=== PATIENT | female | born 1990 | race Caucasian/White ===

== ENCOUNTER → 2023-06-20 07:07 | Outpatient (REF) | payer OTHER, SELFPAY | LOC: PNTC 07:07 | PROVIDERS: ATTENDING PHYSICIAN Obstetrics & Gynecology | DX: Z36.0 Encounter for antenatal screening for chromosomal anomalies (principal); Z36.82 Encounter for antenatal screening for nuchal translucency | CPT/HCPCS: 36415; 76801; 76813 ==

== ENCOUNTER 2023-06-25 09:05 | Emergency (ER) | payer OTHER, SELFPAY ==
[2023-06-25 09:11] VITALS: BP 158/102
--- NOTE | 2023-06-25 09:33 | ED.GENMED ---
History of Present Illness
General
Chief Complaint: Problems
Time Seen by Provider: 06/25/23 09:33
Travel History
Have you had any contact with someone who has COVID-19?: No
Do you have any symptoms of coronavirus? Fever > 100 degrees, chills, cough, shortness of breath, sore throat, loss of taste or smell, muscle aches, or headache?: No
History of Present Illness
History of Present Illness:
HPI: Patient is 13 weeks . She comes in due to concerns of hyperemesis gravidarum. The call in note from Dr. Barry was reviewed which recommended IV fluids and antiemetics. She has no abdominal pain. She has had episodes like this with
her other 2 pregnancies as well.
EXAM:
GENERAL: Well appearing in no distress
HEENT: Moist oral mucosa, small abrasion noted to the lower lip
CARDIOVASCULAR: No murmurs, normal heart rate and rhythm, No chest wall tenderness
PULMONARY: No respiratory distress, breath sounds are clear and equal
ABDOMEN: Soft with no peritoneal signs, no tenderness, elevated BMI
NEUROLOGIC: Excellent strength all extremities, no coordination deficits
PSYCHIATRIC: Appropriate mental status, normal insight and judgement
EXTREMITIES: Nontender, no edema, moves all extremities equally
SKIN: No rash, no lesions
ED COURSE:
9:35 AM: I initially evaluated patient
NUMBER AND COMPLEXITY OF PROBLEMS ADDRESSED AT THE ENCOUNTER
� Chronic conditions affecting care: Migraine headaches, has had related nausea and vomiting in the past, anxiety/depression
� Acute Exacerbation and/or Progression of Chronic Illness: This is a subacute problem
� Differential Diagnosis includes: Nausea and vomiting of , hyperemesis gravidarum, dehydration, RHONDA
AMOUNT AND/OR COMPLEXITY OF DATA TO BE REVIEWED AND ANALYZED
� I performed an independent evaluation of and my interpretation is:
EKG:
CT:
X-rays:
Laboratory Studies: CBC unremarkable, normal renal function, only 1+ ketones in urine.
Other:
� Review of other/old records:
� Clinical information was obtained by an independent historian: I spoke to the at bedside
� Prescriptions/Medications Considered but not given:
� Further testing considered but not performed:
RISK OF COMPLICATIONS AND/OR MORBIDITY OR MORTALITY OF PATIENT MANAGEMENT
� Social determinants of health affecting care: Lives at home, this is her third
� Discussion with other providers: Discussed with Dr. Barry
� Escalation of care including admission/observation vs risk of discharge considered: The patient will be given IV fluids and antiemetic. She already has Zofran at home but does not think that she is tolerating it orally. On
reassessment at 12:15 PM, the patient is improved after receiving 2 L of fluid, Zofran then Reglan with Benadryl. Dr. Barry had called and rectal Phenergan.
Past History
Past History
ED Past Medical History: Asthma, Psychiatric (Anxiety, Depression) and Other (Migraines, Ovarian cyst, Kidney stones)
ED Past Surgical History: Appendectomy and
Social History
Tobacco: Non-smoker
Alcohol: Occasional
Drug: None
Personal:
Living: with family
Phy Exam
Physical Exam
Physical Exam:
See HPI
Course
Orders/Labs/Results
Orders:
Orders
06/25/23 09:35
0.9% Sodium Chloride 1000 ml [Nss] 1,000 ml IV BOLUS
0.9% Sodium Chloride 1000 ml [Nss] 1,000 ml IV BOLUS
06/25/23 09:39
Ondansetron Injectable [Zofran] 4 mg IV NOW STA
06/25/23 10:03
Complete Blood Count/With Diff Urgent
Comprehensive Metabolic Panel Urgent
Urinalysis Urgent
Date Specimen was Collected: 06/25/23
Time Specimen was Collected: 09:40
06/25/23 10:49
Diphenhydramine [Benadryl] 25 mg IV NOW STA
Metoclopramide [Reglan] 10 mg IV NOW STA
Abnormal Lab Results
06/25/23
10:03
MCH 31.1 H pg
(27.0-31.0)
MPV 10.8 H fL
(7.4-10.4)
Absolute Neuts (auto) 7.8 H 10^3/uL
(1.4-6.5)
Neutrophils % 78.2 H %
(42.2-75.2)
Lymphocytes % 16.0 L %
(20.5-51.1)
Sodium 134 L mmol/L
(135-145)
Creatinine 0.4 L mg/dL
(0.6-1.0)
Glucose 100 H mg/dl
(70-99)
Urine Ketones 1+ A
(Negative)
06/25/23 10:03
06/25/23 10:03
Vital Signs
Initial and Last Documented VS:
Initial Vital Signs
Temp Pulse Resp BP Pulse Ox
98.7 F 89 20 158/102 98
06/25/23 09:11 06/25/23 09:11 06/25/23 09:11 06/25/23 09:11 06/25/23 09:11
Last Documented Vital Signs
Temp Pulse Resp BP Pulse Ox
98.7 F 89 20 158/102 98
06/25/23 09:11 06/25/23 09:11 06/25/23 09:11 06/25/23 09:11 06/25/23 09:11
Information
Weeks gestation: Weeks:
Location: Location:
*Critical Care Note
Total Time (30-74mins, 75-104mins- exclusive of procedures): Not Applicable
ED Attending Note
-
Portions of this chart may have been created with voice recognition software.� Occasional wrong word or��sound alike� substitutions may have occurred due to the inherent limitations of voice recognition software.
Discharge Plan
Departure
Patient Disposition: Home (Routine Discharge)
Date of Disposition: 06/25/23
Time of Disposition: 12:12
Patient with high blood pressure during this ER visit?: Yes
Discharge Problem:
Hyperemesis gravidarum
Prescriptions:
No Action
PNV cmb#95-ferrous fumarate-FA [] 1 EACH tablet
1 ea PO DAILY
acetaminophen 325 mg Tablet
650 mg PO Q4HPRN PRN (Reason: mild pain) Qty: 0 0RF
sennosides-docusate sodium [Senna Plus] 8.6-50 mg Tablet
1 tab PO DAILYPRN PRN (Reason: constipation) Qty: 0 0RF
ferrous sulfate [FeroSul] 325 mg (65 mg iron) Tablet
325 mg PO BID Qty: 0 0RF
ibuprofen 600 mg Tablet
600 mg PO Q6HPRN PRN (Reason: cramps) Qty: 40 0RF
oxycodone-acetaminophen [Percocet] 5-325 mg tablet
1 tab PO Q4HPRN PRN (Reason: moderate pain)
simethicone [Gas Relief (simethicone)] 80 mg tablet,chewable
80 mg PO TIDPRN PRN (Reason: flatulence)
nifedipine 30 mg Tablet Extended Release
30 mg PO DAILY Qty: 60 0RF
Referrals:
Ciarra Gilliland MD [Family Provider] -
Marian Barry MD [Active] - Follow up in 2-3 days
Activity Restrictions/Additional Instructions:
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 We gave you 2 L of fluid, then Zofran and Reglan. She told me that she called in rectal Phenergan for you. Return here if worse.
Interventions
Interventions:
*Risk Screen - Suicide Last Done: 06/25/23 09:11
*General Assessment Last Done: 06/25/23 09:11
*Neglect/Abuse Screening Last Done: 06/25/23 09:11
ED-Female Genitourinary Assessment Last Done: 06/25/23 10:42
[2023-06-25] MEDS: NSS 1000 IV ×2 (10:03→10:05)
[2023-06-25] MEDS: ZOFRAN 4 MG IV (10:04)
[2023-06-25 10:22] LABS: Urine Albumin Negative (Neg - Trace); Urine Bilirubin Negative (Negative); Urine Character Clear (Clear); Urine Color Yellow; Urine Glucose Negative (Negative); Urine Ketone 1+ (Negative); Urine Leukocyte Negative (Negative); Urine Nitrite Negative (Negative); Urine Occult Blood Negative (Negative); Urine Urobilinogen Negative (Neg - 1+)
[2023-06-25 10:23] LABS: % Basophils 0.3 % (0-2); % Eosinophils 0.6 % (0-6); % Immature Granulocytes 0.4 % (0-0.5); % Monocytes 4.5 % (1.7-9.3); % Neutrophils 78.2 % (42.2-75.2); Absolute Eosinophils 0.1 10^3/uL (0-0.7); Absolute Lymphocytes 1.6 10^3/uL (1.2-3.4); Absolute Monocytes 0.5 10^3/uL (0.1-0.6); Absolute Neutrophils 7.8 10^3/uL (1.4-6.5); Hematocrit 39.3 % (37.0-47.0); Hemoglobin 13.6 g/dL (12.0-16.0); Mean Corp Hgb Conc. 34.6 g/dL (33.0-37.0); Mean Corpuscular Hgb 31.1 pg (27.0-31.0); Mean Corpuscular Volume 89.9 fL (81.0-99.0); Mean Platelet Volume 10.8 fL (7.4-10.4); Nucleated Red Blood Cells % 0 %; Platelet Count 220 10^3/uL (130-400); Red Blood Cell Count 4.37 10^6/uL (4.20-5.40); Red Cell Dist. Width 13.3 % (11.5-14.5); White Blood Cell Count 9.9 10^3/uL (4.8-10.8)
[2023-06-25 10:30] LABS: ALT (SGPT) 18 U/L (0-35); AST (SGOT) 21 U/L (14-36); Albumin 4.4 g/dl (3.5-5.0); Alkaline Phosphatase 80 U/L (38-126); Blood Urea Nitrogen 7 mg/dl (7-17); Calcium 9.4 mg/dl (8.4-10.2); Carbon Dioxide 23 mmol/L (22-30); Chloride 102 mmol/L (98-107); Glucose 100 mg/dl (70-99); Potassium 4.2 mmol/L (3.5-5.1); Sodium 134 mmol/L (135-145); Total Bilirubin 0.4 mg/dl (0.2-1.3); Total Protein 7.4 g/dl (6.3-8.2); eGFR > 60.00
[2023-06-25] MEDS: REGLAN 10 MG IV (10:54)
[2023-06-25] MEDS: BENADRYL 25 MG IV (10:55)
[2023-06-25 12:51] VITALS: BP 132/84
== END 2023-06-25 12:53 | disposition home or self-care (01) ==
LOC: EMR 09:05
PROVIDERS: EMERGENCY PHYSICIAN Emergency Medicine; FAMILY PHYSICIAN Family Medicine
DX: O21.0 Mild hyperemesis gravidarum (principal); O99.511 Diseases of the respiratory system complicating pregnancy, first trimester; J45.909 Unspecified asthma, uncomplicated; O99.341 Other mental disorders complicating pregnancy, first trimester; F32.A Depression, unspecified; F41.9 Anxiety disorder, unspecified; Z3A.13 13 weeks gestation of pregnancy; Z87.442 Personal history of urinary calculi; Z90.49 Acquired absence of other specified parts of digestive tract
CPT/HCPCS: 99283; 96374; 96375; 96361; 80053; 81003; 85025

== ENCOUNTER → 2023-07-16 16:15 | Outpatient (REF) | payer OTHER, SELFPAY | LOC: PNTC 16:15 | PROVIDERS: ATTENDING PHYSICIAN Obstetrics & Gynecology | DX: O99.210 Obesity complicating pregnancy, unspecified trimester (principal); O35.5XX0 Maternal care for (suspected) damage to fetus by drugs, not applicable or unspecified; O34.219 Maternal care for unspecified type scar from previous cesarean delivery; Z87.59 Personal history of other complications of pregnancy, childbirth and the puerperium | CPT/HCPCS: 76805 ==

== ENCOUNTER → 2023-07-31 17:04 | Outpatient (REF) | payer OTHER, SELFPAY | LOC: RAD 17:04 | PROVIDERS: ATTENDING PHYSICIAN Obstetrics & Gynecology; FAMILY PHYSICIAN Family Medicine | DX: O36.80X0 Pregnancy with inconclusive fetal viability, not applicable or unspecified (principal) | CPT/HCPCS: 76815 ==

== ENCOUNTER → 2023-08-20 16:10 | Outpatient (REF) | payer OTHER, SELFPAY | LOC: PNTC 16:10 | PROVIDERS: ATTENDING PHYSICIAN Obstetrics & Gynecology | DX: O99.210 Obesity complicating pregnancy, unspecified trimester (principal); O35.5XX0 Maternal care for (suspected) damage to fetus by drugs, not applicable or unspecified; Z87.59 Personal history of other complications of pregnancy, childbirth and the puerperium; O34.219 Maternal care for unspecified type scar from previous cesarean delivery | CPT/HCPCS: 76811 ==

== ENCOUNTER → 2023-09-17 17:21 | Outpatient (REF) | payer OTHER, SELFPAY | LOC: PNTC 17:21 | PROVIDERS: ATTENDING PHYSICIAN Obstetrics & Gynecology | DX: O99.210 Obesity complicating pregnancy, unspecified trimester (principal); O34.219 Maternal care for unspecified type scar from previous cesarean delivery; Q79.60 Ehlers-Danlos syndrome, unspecified; O35.5XX0 Maternal care for (suspected) damage to fetus by drugs, not applicable or unspecified | CPT/HCPCS: 76816 ==

== ENCOUNTER → 2023-10-15 17:25 | Outpatient (REF) | payer OTHER, SELFPAY | LOC: PNTC 17:25 | PROVIDERS: ATTENDING PHYSICIAN Obstetrics & Gynecology | DX: O99.210 Obesity complicating pregnancy, unspecified trimester (principal); O34.219 Maternal care for unspecified type scar from previous cesarean delivery; O35.5XX0 Maternal care for (suspected) damage to fetus by drugs, not applicable or unspecified; Q79.60 Ehlers-Danlos syndrome, unspecified | CPT/HCPCS: 76816 ==

== ENCOUNTER 2023-10-31 03:35 | Observation (INO) | payer OTHER, SELFPAY ==
[2023-10-31 03:58] VITALS: BP 152/82; BMI 52.5
[2023-10-31 04:24] LABS: % Basophils 0.3 % (0-2); % Immature Granulocytes 1.3 % (0-0.5); % Lymphocytes 16.2 % (20.5-51.1); % Monocytes 7.8 % (1.7-9.3); % Neutrophils 73.4 % (42.2-75.2); Absolute Eosinophils 0.1 10^3/uL (0-0.7); Absolute Immature Granulocytes 0.1 10^3/uL (0-0.05); Absolute Lymphocytes 1.8 10^3/uL (1.2-3.4); Absolute Monocytes 0.9 10^3/uL (0.1-0.6); Absolute Neutrophils 8.1 10^3/uL (1.4-6.5); Hematocrit 31.5 % (37.0-47.0); Hemoglobin 11.1 g/dL (12.0-16.0); Mean Corp Hgb Conc. 35.2 g/dL (33.0-37.0); Mean Corpuscular Hgb 31.3 pg (27.0-31.0); Mean Corpuscular Volume 88.7 fL (81.0-99.0); Mean Platelet Volume 10.6 fL (7.4-10.4); Nucleated Red Blood Cells % 0 %; Platelet Count 204 10^3/uL (130-400); Red Blood Cell Count 3.55 10^6/uL (4.20-5.40); Red Cell Dist. Width 13.1 % (11.5-14.5)
[2023-10-31] MEDS: ZOFRAN 4 MG PO (04:29)
[2023-10-31 04:40] LABS: PT 14.2 Sec (11.4-14.6)
[2023-10-31] MEDS: CELESTONE SOLUSPAN 2 MG IM (04:45)
[2023-10-31 04:47] LABS: ALT (SGPT) 15 U/L (0-35); AST (SGOT) 20 U/L (14-36); Albumin 3.7 g/dl (3.5-5.0); Alkaline Phosphatase 103 U/L (38-126); Blood Urea Nitrogen 10 mg/dl (7-17); Calcium 9.8 mg/dl (8.4-10.2); Carbon Dioxide 18 mmol/L (22-30); Chloride 107 mmol/L (98-107); Estimated Creatinine Clearance > 125 ml/min; Glucose 106 mg/dl (70-99); Potassium 4.1 mmol/L (3.5-5.1); Sodium 136 mmol/L (135-145); Total Bilirubin 0.2 mg/dl (0.2-1.3); Total Protein 6.7 g/dl (6.3-8.2); eGFR > 60.00
[2023-10-31] MEDS: LR 1000 IV ×3 (04:50→15:55)
[2023-10-31 05:00] LABS: Fibrinogen 637 MG/DL (199-459)
[2023-10-31 05:09] LABS: Protein/creatinine Ratio 0.2; Urine Protein 46 mg/dl
[2023-10-31] MEDS: MORPHINE SULFATE 2 MG IV (05:09)
[2023-10-31] MEDS: MAGNESIUM SULFATE 100 IV (05:19)
[2023-10-31] MEDS: MAGNESIUM SULFATE 40 GRAM 1000 IV ×2 (05:43→16:00)
[2023-10-31 05:48] LABS: Urine Albumin 1+ (Neg - Trace); Urine Bilirubin Negative (Negative); Urine Character Slightly Cloudy (Clear); Urine Color Amber; Urine Glucose Negative (Negative); Urine Ketone 1+ (Negative); Urine Leukocyte Trace (Negative); Urine Nitrite Negative (Negative); Urine Occult Blood 4+ (Negative); Urine Urobilinogen Negative (Neg - 1+); Urine pH 6.5 (5.0-9.0)
[2023-10-31] MEDS: PRENATAL PLUS 1 TABLET PO (08:09)
[2023-10-31 08:58] LABS: Urine Squamous Cell >30 /LPF (Few)
[2023-10-31 09:00] LABS: Urine Bacteria Few (Negative); Urine Red Blood Cell >100 /HPF (0-2); Urine White Cell 0-2 /HPF (0-5)
[2023-10-31 09:20] LABS: % Basophils 0.2 % (0-2); % Eosinophils 0.1 % (0-6); % Immature Granulocytes 0.9 % (0-0.5); % Lymphocytes 7.8 % (20.5-51.1); % Monocytes 2.6 % (1.7-9.3); % Neutrophils 88.4 % (42.2-75.2); Absolute Immature Granulocytes 0.1 10^3/uL (0-0.05); Absolute Lymphocytes 1.2 10^3/uL (1.2-3.4); Absolute Monocytes 0.4 10^3/uL (0.1-0.6); Absolute Neutrophils 13.1 10^3/uL (1.4-6.5); Hematocrit 32.1 % (37.0-47.0); Hemoglobin 11.2 g/dL (12.0-16.0); Mean Corp Hgb Conc. 34.9 g/dL (33.0-37.0); Mean Corpuscular Hgb 31.4 pg (27.0-31.0); Mean Corpuscular Volume 89.9 fL (81.0-99.0); Mean Platelet Volume 10.4 fL (7.4-10.4); Nucleated Red Blood Cells % 0 %; Platelet Count 215 10^3/uL (130-400); Red Blood Cell Count 3.57 10^6/uL (4.20-5.40); White Blood Cell Count 14.8 10^3/uL (4.8-10.8)
[2023-10-31 09:33] LABS: APTT 23.4 Sec (23.4-35.0); INR 1.12; PT 14.4 Sec (11.4-14.6)
[2023-10-31 09:34] LABS: Fibrinogen 657 MG/DL (199-459)
[2023-10-31] MEDS: ZOFRAN 4 MG IV (10:33)
--- NOTE | 2023-10-31 11:10 | W.PN.URO.CBU ---
Today's Communication / Plan
-
Discussed management options with patient, and OB staff
As patient is currently comfortable and has a few medical issues still being assessed/ addressed I would not advise urgent surgical intervention
Surgery would entail irradiation to the baby and the need for a JJ stent throughout the remainder of the patient's
As patient has successfully passed a stone previously she chooses a trial of stone passage at this time
Assessment / Plan
-
Possible partially obstructing 4-5 mm left UPJ stone with associated dilation of left lower pole calyces
31 week intrauterine
Hypertension
Gestational diabetes
Obesity
Diagnosis
-
Date of Service: October 31, 2023
-
Patient Diagnosis:
31 week intrauterine
Left lower quadrant discomfort
Probable 4-5 mm left UPJ stone with moderate hydronephrosis of the left lower pole calyces
Hypertension
Gestational diabetes
Morbid obesity
Subjective
-
Patient is presently comfortable
No pain
No nausea
No new voiding dysfunction
Objective
-
Vital Signs
Temp Pulse Resp BP
98.5 F 20 117 152/82
10/31/23 03:58 10/31/23 03:58 10/31/23 03:58 10/31/23 03:58
Laboratory Results
10/31/23 09:06
10/31/23 04:10
Review of Systems
-
Constitutional: No Symptoms
Respiratory: No Symptoms
Cardiac: No Symptoms
Abdomen/GI: Abdominal Pain
: No Symptoms
Neurological: No Symptoms
Physical Exam
-
General - well developed, well nourished, no acute distress at this time
Abdomen - soft, non-tender
Neuro - AOx3, no motor deficits
Counseling
-
Trial of stone passage
Supportive care
--- NOTE | 2023-10-31 11:19 | W.PN.URO.CBU ---
Today's Communication / Plan
-
Have discussed treatment options at length with patient, and OB care team
Would advise a trial of stone passage as patient has medical issues still being assessed and addressed
Hope to avoid irradiation to baby, need for prolonged JJ stent and risk of surgery in this patient who has previously passe a stone
Patient agrees at this timed
Assessment / Plan
-
Possible partially obstructing 4-5 mm left UPJ stone with associated dilation of left lower pole calyces
31 week intrauterine
Hypertension
Gestational diabetes
Obesity
Diagnosis
-
Date of Service: October 31, 2023
-
Patient Diagnosis:
Post Op Day:
Patient Diagnosis:
31 week intrauterine
Left lower quadrant discomfort
Probable 4-5 mm left UPJ stone with moderate hydronephrosis of the left lower pole calyces
Hypertension
Gestational diabetes
Morbid obesity
Objective
-
Vital Signs
Temp Pulse Resp BP
98.5 F 20 117 152/82
10/31/23 03:58 10/31/23 03:58 10/31/23 03:58 10/31/23 03:58
Laboratory Results
10/31/23 09:06
10/31/23 04:10
Physical Exam
-
General - well developed, well nourished, no acute distress
Chest - clear bilaterally
Abdomen - soft, non-tender, positive bowel sounds, no CVAT, no incisional pain or distention
Genitalia - normal
Rectal - normal
Skin - warm & dry with no rash
Neuro - AOx3, no motor deficits
Extremities - no clubbing, no cyanosis, no edema
Incision - clean, dry
Dressing - clean, dry, intact
Counseling
-
Continue medical management and trial of stone passage
[2023-10-31] MEDS: TRANDATE 20 MG IV (15:50)
[2023-10-31] MEDS: EFFEXOR XR 75 MG PO (16:15)
== END 2023-10-31 17:00 | disposition short-term general hospital (02) ==
LOC: LDRP 03:35
PROVIDERS: ADMITTING PHYSICIAN Obstetrics & Gynecology; CONSULT PHYSICIAN Specialist
DX: R10.9 Unspecified abdominal pain (principal); O13.3 Gestational [pregnancy-induced] hypertension without significant proteinuria, third trimester; N20.1 Calculus of ureter; O24.410 Gestational diabetes mellitus in pregnancy, diet controlled; Z3A.31 31 weeks gestation of pregnancy; O99.213 Obesity complicating pregnancy, third trimester; R31.9 Hematuria, unspecified; R10.2 Pelvic and perineal pain; K76.0 Fatty (change of) liver, not elsewhere classified; Q63.8 Other specified congenital malformations of kidney; E66.01 Morbid (severe) obesity due to excess calories
CPT/HCPCS: 76770; 76805; 76815; 80053; 81003; 81015; 82570; 84156; 85025; 85384; 85460; 85610; 85730; 86850; 86900; 86901; 87070; 93976; G0378

== ENCOUNTER → 2023-11-12 16:50 | Outpatient (REF) | payer OTHER, SELFPAY | LOC: PNTC 16:50 | PROVIDERS: ATTENDING PHYSICIAN Obstetrics & Gynecology | DX: Q79.60 Ehlers-Danlos syndrome, unspecified (principal); O34.219 Maternal care for unspecified type scar from previous cesarean delivery; O99.210 Obesity complicating pregnancy, unspecified trimester; O35.5XX0 Maternal care for (suspected) damage to fetus by drugs, not applicable or unspecified | CPT/HCPCS: 59025; 76816 ==

== ENCOUNTER → 2023-11-19 16:46 | Outpatient (REF) | payer OTHER, SELFPAY | LOC: PNTC 16:46 | PROVIDERS: ATTENDING PHYSICIAN Obstetrics & Gynecology | DX: O99.210 Obesity complicating pregnancy, unspecified trimester (principal); O34.219 Maternal care for unspecified type scar from previous cesarean delivery; O10.119 Pre-existing hypertensive heart disease complicating pregnancy, unspecified trimester; Q79.60 Ehlers-Danlos syndrome, unspecified | CPT/HCPCS: 59025; 76815 ==

== ENCOUNTER → 2023-11-26 16:44 | Outpatient (REF) | payer OTHER, SELFPAY | LOC: PNTC 16:44 | PROVIDERS: ATTENDING PHYSICIAN Obstetrics & Gynecology | DX: O99.210 Obesity complicating pregnancy, unspecified trimester (principal); O34.219 Maternal care for unspecified type scar from previous cesarean delivery; O35.5XX0 Maternal care for (suspected) damage to fetus by drugs, not applicable or unspecified | CPT/HCPCS: 59025; 76815 ==

== ENCOUNTER 2023-12-03 17:43 | Inpatient (IN) | payer OTHER, SELFPAY ==
[2023-12-03 18:09] VITALS: BP 146/83; BMI 51.7
[2023-12-03 18:32] LABS: Hematocrit 30.2 % (37.0-47.0); Hemoglobin 10.8 g/dL (12.0-16.0); Mean Corp Hgb Conc. 35.8 g/dL (33.0-37.0); Mean Corpuscular Hgb 31.1 pg (27.0-31.0); Mean Platelet Volume 11.4 fL (7.4-10.4); Platelet Count 234 10^3/uL (130-400); Red Blood Cell Count 3.47 10^6/uL (4.20-5.40); Red Cell Dist. Width 13.3 % (11.5-14.5); White Blood Cell Count 11.5 10^3/uL (4.8-10.8)
[2023-12-03 18:37] LABS: Urine Albumin 1+ (Neg - Trace); Urine Bilirubin Negative (Negative); Urine Character Slightly Cloudy (Clear); Urine Color Yellow; Urine Glucose Negative (Negative); Urine Ketone Trace (Negative); Urine Leukocyte Trace (Negative); Urine Nitrite Negative (Negative); Urine Occult Blood Negative (Negative); Urine Specific Gravity 1.015 (<1.030); Urine Urobilinogen 1+ (Neg - 1+); Urine pH 6.5 (5.0-9.0)
[2023-12-03 18:47] LABS: Protein/creatinine Ratio 0.2; Urine Protein 38 mg/dl; Urine Squamous Cell >30 /LPF (Few)
[2023-12-03 18:47] LABS: ALT (SGPT) 13 U/L (0-35); AST (SGOT) 21 U/L (14-36); Albumin 3.5 g/dl (3.5-5.0); Alkaline Phosphatase 126 U/L (38-126); Blood Urea Nitrogen 7 mg/dl (7-17); Carbon Dioxide 21 mmol/L (22-30); Chloride 106 mmol/L (98-107); Estimated Creatinine Clearance > 125 ml/min; Glucose 104 mg/dl (70-99); Potassium 4.1 mmol/L (3.5-5.1); Sodium 132 mmol/L (135-145); Total Bilirubin 0.4 mg/dl (0.2-1.3); Total Protein 6.3 g/dl (6.3-8.2); eGFR > 60.00
[2023-12-03 18:48] LABS: Urine Bacteria Few (Negative); Urine Mucus Moderate; Urine Red Blood Cell 0-2 /HPF (0-2); Urine White Cell 0-2 /HPF (0-5)
[2023-12-03] MEDS: MAGNESIUM SULFATE 100 IV (20:51)
[2023-12-03] MEDS: BICITRA 30 ML PO (20:55)
[2023-12-03] MEDS: ANCEF 15 MG IV (20:56)
[2023-12-03] MEDS: TYLENOL 1000 MG PO (20:56)
[2023-12-03] MEDS: TRANDATE 20 MG IV (21:00)
[2023-12-03] MEDS: MAGNESIUM SULFATE 40 GRAM 1000 IV (23:23)
[2023-12-03] MEDS: CYTOTEC 800 MCG RECTAL (23:45)
[2023-12-04] MEDS: TRANDATE 200 MG PO ×3 (00:01→20:21)
[2023-12-04] MEDS: REGLAN 10 MG IV ×2 (00:02→07:38)
[2023-12-04] MEDS: TORADOL 15 MG IV ×4 (00:10→18:05)
[2023-12-04] MEDS: LR 1000 IV ×2 (00:36→15:40)
[2023-12-04] MEDS: PITOCIN 30 UNITS/NSS 500 ML IV ×2 (00:36→03:15)
[2023-12-04] MEDS: DILAUDID 0.5 MG IV (04:53)
[2023-12-04] MEDS: ZOFRAN 4 MG IV (04:53)
--- NOTE | 2023-12-04 07:57 | W.PN.ANS.POP ---
Anesthesia Post Operative
- Anesthesia Post Op Note
Vital Signs Stable-See Nursing Note: Yes
Airway Patent: Yes
Adequate Pain Control: Yes
Change in Mental Status: No
Current Postoperative Nausea & Vomiting: No
Anesthesia Complications: No
General Anesthetic Recall: No
Unplanned Admission: No
Post Op Hydration Adequate: Yes
[2023-12-04] MEDS: PRENATAL PLUS PO (08:34)
[2023-12-04] MEDS: EFFEXOR XR 75 MG PO (09:14)
[2023-12-04 10:30] LABS: % Basophils 0.3 % (0-2); % Eosinophils 0.1 % (0-6); % Immature Granulocytes 0.5 % (0-0.5); % Lymphocytes 10.4 % (20.5-51.1); % Monocytes 7.6 % (1.7-9.3); % Neutrophils 81.1 % (42.2-75.2); Absolute Immature Granulocytes 0.1 10^3/uL (0-0.05); Absolute Lymphocytes 1.6 10^3/uL (1.2-3.4); Absolute Monocytes 1.2 10^3/uL (0.1-0.6); Absolute Neutrophils 12.3 10^3/uL (1.4-6.5); Hematocrit 29.3 % (37.0-47.0); Hemoglobin 10.7 g/dL (12.0-16.0); Mean Corp Hgb Conc. 36.5 g/dL (33.0-37.0); Mean Corpuscular Hgb 30.8 pg (27.0-31.0); Mean Corpuscular Volume 84.4 fL (81.0-99.0); Mean Platelet Volume 11.3 fL (7.4-10.4); Nucleated Red Blood Cells % 0 %; Platelet Count 221 10^3/uL (130-400); Red Blood Cell Count 3.47 10^6/uL (4.20-5.40); Red Cell Dist. Width 13.2 % (11.5-14.5); White Blood Cell Count 15.1 10^3/uL (4.8-10.8)
[2023-12-04] MEDS: PERCOCET 5/325 1 TABLET PO ×2 (16:28→20:33)
[2023-12-04] MEDS: MAGNESIUM SULFATE 40 GRAM 1000 IV (18:02)
[2023-12-05] MEDS: PERCOCET 5/325 2 TABLET PO ×2 (00:05→23:25)
[2023-12-05] MEDS: MOTRIN 600 MG PO ×4 (00:06→18:10)
[2023-12-05] MEDS: PERCOCET 5/325 1 TABLET PO ×4 (05:58→19:42)
[2023-12-05] MEDS: FEOSOL 325 MG PO (08:07)
[2023-12-05] MEDS: PRENATAL PLUS 1 TABLET PO (08:07)
[2023-12-05] MEDS: SENOKOT-S 1 TABLET PO (08:08)
[2023-12-05] MEDS: EFFEXOR XR 75 MG PO (08:08)
[2023-12-05] MEDS: EFFEXOR XR PO (08:09)
[2023-12-05] MEDS: TRANDATE 200 MG PO ×2 (08:18→20:05)
[2023-12-06] MEDS: MOTRIN 600 MG PO ×2 (00:42→07:40)
[2023-12-06] MEDS: PERCOCET 5/325 1 TABLET PO (05:31)
[2023-12-06] MEDS: FEOSOL 325 MG PO (07:40)
[2023-12-06] MEDS: PRENATAL PLUS 1 TABLET PO (07:40)
[2023-12-06] MEDS: EFFEXOR XR 75 MG PO ×2 (07:40→08:02)
[2023-12-06] MEDS: TRANDATE 200 MG PO (07:41)
--- NOTE | 2023-12-06 08:35 | W.DS.TRANS ---
DC Summary - Final [employer]
-
Discharge Instructions:
Discharge Diagnosis/Procedures section
Instructions:
Stand-Alone Forms: LDRP Delivery
Changes to Home Medications: Yes
Discharge Medications:
DC Medications w/original date entered in [facility]
prenat.vits,garett,pxc-hhzu-mserx 1 tab PO DAILY 10/31/23
venlafaxine 75 mg tablet 75 mg PO DAILY 10/31/23
acetaminophen 325 mg tablet 650 mg (2 x 325 mg) PO Q4HPRN PRN mild pain #0 tabs 12/06/23
ferrous sulfate 325 mg (65 mg iron) tablet (FeroSul) 325 mg PO DAILY #0 tabs 12/06/23
ibuprofen 600 mg tablet 600 mg PO Q6HPRN PRN cramps #40 tabs 12/06/23
labetalol 200 mg tablet 200 mg PO BID #90 tabs 12/06/23
oxycodone-acetaminophen 5 mg-325 mg tablet 1 tab PO Q4HPRN PRN moderate pain #12 tabs 12/06/23
sennosides 8.6 mg-docusate sodium 50 mg tablet 1 tab PO DAILYPRN PRN constipation #0 tabs 12/06/23
simethicone 80 mg chewable tablet 80 mg PO TIDPRN PRN flatulence #0 tabs 12/06/23
Home Medication Changes
Pending Results: Yes
Additional Pending Results:
Salpingectomy specimen
Total time spent discharging patient (in min): 20
[2023-12-06] MEDS: PERCOCET 5/325 2 TABLET PO (09:20)
== END 2023-12-06 10:29 | disposition home or self-care (01) | DRG 784 ==
LOC: LDRP 17:43
PROVIDERS: ADMITTING PHYSICIAN Obstetrics & Gynecology; ATTENDING PHYSICIAN Obstetrics & Gynecology
PROC: 10D00Z1 Extraction of Products of Conception, Low, Open Approach (ICD-10-PCS; 2023-12-03)
PROC: 0UB70ZZ Excision of Bilateral Fallopian Tubes, Open Approach (ICD-10-PCS; 2023-12-03)
DX: O14.14 Severe pre-eclampsia complicating childbirth (principal); Q79.60 Ehlers-Danlos syndrome, unspecified; Z3A.36 36 weeks gestation of pregnancy; Z37.0 Single live birth; O69.81X0 Labor and delivery complicated by cord around neck, without compression, not applicable or unspecified; O34.211 Maternal care for low transverse scar from previous cesarean delivery; O99.214 Obesity complicating childbirth; E66.01 Morbid (severe) obesity due to excess calories; O99.284 Endocrine, nutritional and metabolic diseases complicating childbirth; E28.2 Polycystic ovarian syndrome; G43.909 Migraine, unspecified, not intractable, without status migrainosus; O24.420 Gestational diabetes mellitus in childbirth, diet controlled; F32.A Depression, unspecified; O99.344 Other mental disorders complicating childbirth; O72.1 Other immediate postpartum hemorrhage; Z87.442 Personal history of urinary calculi; Z90.49 Acquired absence of other specified parts of digestive tract; Z80.49 Family history of malignant neoplasm of other genital organs; Z80.3 Family history of malignant neoplasm of breast; Z30.2 Encounter for sterilization; Z88.8 Allergy status to other drugs, medicaments and biological substances
CPT/HCPCS: 88305; 88307; 58605; 59025; 76815; 80053; 81003; 81015; 82570; 84156; 85025; 85027; 86850; 86900; 86901

== ENCOUNTER 2024-02-06 23:14 | Emergency (ER) | payer OTHER, SELFPAY ==
[2024-02-06 23:16] VITALS: BP 180/115
[2024-02-06 23:57] LABS: Urine Albumin Trace (Neg - Trace); Urine Bilirubin Negative (Negative); Urine Character Slightly Cloudy (Clear); Urine Color Yellow; Urine Glucose Negative (Negative); Urine Ketone Negative (Negative); Urine Leukocyte Negative (Negative); Urine Nitrite Negative (Negative); Urine Occult Blood 3+ (Negative); Urine Urobilinogen Negative (Neg - 1+)
[2024-02-06 23:59] VITALS: BP 160/114
--- NOTE | 2024-02-07 00:08 | ED.GENMED ---
History of Present Illness
General
Chief Complaint: Flank Pain
Source: patient, records and family
Exam Limitations: none
Time Seen by Provider: 02/06/24 23:43
Nursing documentation reviewed up to this point in time: agreed with
History of Present Illness
History of Present Illness:
33-year-old female presents with right flank pain acute onset with nausea no fever decreased urination, history of kidney stone 8 weeks after her last she was able to pass the stone on her own she also during her most recent
had a likely kidney stone that was able to pass spontaneously she believes although she never saw the stone, was seen by urology during her recent , she is now 8 weeks , did get her menstrual cycle recently, no heavy
lifting, she is not breast-feeding
Past History
Past History
ED Past Medical History: Asthma, Psychiatric (Anxiety, Depression) and Other (Migraines, Ovarian cyst, Kidney stones)
ED Past Surgical History: Appendectomy and ; Negative Urological
Social History
Tobacco: Non-smoker
Alcohol: Occasional
Drug: None
Personal:
Living: with family
Employment: Employed
Review of Systems
Review of Systems
All Other Systems: Not applicable
Constitutional: Denies fever or fatigue
EENT: Reports no symptoms
Respiratory: Reports no symptoms
Cardiac: Reports no symptoms
ABD/GI: Reports nausea
: Reports dysuria and flank pain
Musculoskeletal: Reports no symptoms
Skin: Reports no symptoms
Neurological: Reports no symptoms
Phy Exam
Physical Exam
Physical Exam:
Physical Exam
General: 33 female sitting upright looks uncomfortable but non toxic
Neck: No jaundice
Heart: s1/s2 regular rate and rhythm, no murmur. equal radial pulses.
Lungs: no acute respiratory distress. clear bilaterally
Abdomen: Obese tender in the right CVA
Neuro: alert and oriented. no focal neurological deficits
Skin: no rash
Psychiatric: well kept. interactive and cooperative
Extremities: no edema.
Course
Orders/Labs/Results
Orders:
Orders
02/06/24 23:48
HCG, Urine Qualitative Screen Urgent
Date Specimen was Collected: 02/06/24
Time Specimen was Collected: 23:44
Comment: ADD ON
Urinalysis Reflex To Culture Urgent
Date Specimen was Collected: 02/06/24
Time Specimen was Collected: 23:44
Urine Microscopic Reflex Cult Urgent
Urine Culture Urgent
BENEDICTO Source: U
Specimen Description:
Date Specimen was Collected: 02/06/24
Time Specimen was Collected: 23:44
02/07/24 00:00
0.9% Sodium Chloride 1000 ml [Nss] 1,000 ml IV BOLUS
HYDROmorphone [Dilaudid] 1 mg IV NOW STA
Ketorolac [Toradol] 30 mg IV NOW STA
Ondansetron Injectable [Zofran] 4 mg IV NOW STA
02/07/24 00:01
CT Abd/pel Without Iv Or Oral Urgent
Comment:
Reason For Exam: riht falknal pain
02/07/24 00:11
Add On- LAB Urgent
Tests Added?: urine hcg qualitative
02/07/24 00:39
Add On- LAB Urgent
Tests Added?: hcg qualitative urine
02/07/24 01:00
HCG, Beta Quantitative [Beta HCG Quantitative] Stat
Is this a screen?: No
Abnormal Lab Results
02/06/24
23:48
Ur Occult Blood Reflex 3+ A
(Negative)
Urine RBC 70-80 A /HPF
(0-2)
Urine Bacteria (Reflex) Moderate A
(Negative)
Vital Signs
Initial and Last Documented VS:
Initial Vital Signs
Temp Pulse Resp BP Pulse Ox
98.5 F 72 22 180/115 98
02/06/24 23:16 02/06/24 23:16 02/06/24 23:16 02/06/24 23:16 02/06/24 23:16
Last Documented Vital Signs
Temp Pulse Resp BP Pulse Ox
98.5 F 69 20 146/90 96
02/06/24 23:16 02/07/24 02:06 02/06/24 23:59 02/07/24 02:06 02/07/24 02:06
MDM/Problems Addressed
Differential Diagnosis Includes:
Renal colic, muscle strain, menstrual cramps UTI
MDM/Problems Addressed:
Right flank pain
Chronic conditions affecting care:
Prior kidney stone
Acute Exacerbation and/or Progression of Chronic Illness:
Prior stone kidney
*Radiology
Radiology exam reviewed: radiology read reviewed
*Pulse Oximetry
Patient hypoxic: no
*Critical Care Note
Total Time (30-74mins, 75-104mins- exclusive of procedures): Not Applicable
Data Reviewed
Review of Other/Old Records Reveals: Labs and Progress Notes
Source: patient and family
Update Note
Update Note:
Update, urine hCG mildly positive, she recently had a baby who also had a tubal ligation, given proceeding with CT scanning now check beta quant which apparently has been sexually active since her recent ,
CT noted, quantitative hCG noted suspect lab error or overzealous interpretation of urine screen nonetheless believe she can be discharged home patient feeling much better
ED Attending Note
-
Portions of this chart may have been created with voice recognition software.� Occasional wrong word or��sound alike� substitutions may have occurred due to the inherent limitations of voice recognition software.
Discharge Plan
Departure
Patient Disposition: Home (Routine Discharge)
Date of Disposition: 02/07/24
Time of Disposition: 02:12
Patient with high blood pressure during this ER visit?: Yes
Condition: Good
Discharge Problem:
Kidney stone on right side
Instructions: Kidney Stones (DC), Renal Colic (DC), Flank Pain (DC)
Prescriptions:
New
oxycodone-acetaminophen [Percocet] 5-325 mg tablet
1 tab PO Q6HPRN PRN (Reason: pain) Qty: 10 0RF
ibuprofen 600 mg tablet
600 mg PO Q8H PRN (Reason: Pain) Qty: 20 0RF
ondansetron 4 mg tablet,disintegrating
4 mg PO Q8H PRN (Reason: nausea and vomiting) Qty: 10 0RF
No Action
prenat.vits,garett,pif-yvnm-goaun Tablet
1 tab PO DAILY
venlafaxine 75 mg Tablet
75 mg PO DAILY
sennosides-docusate sodium 8.6-50 mg Tablet
1 tab PO DAILYPRN PRN (Reason: constipation) Qty: 0 0RF
oxycodone-acetaminophen 5-325 mg Tablet
1 tab PO Q4HPRN PRN (Reason: moderate pain) Qty: 12 0RF
ferrous sulfate [FeroSul] 325 mg (65 mg iron) Tablet
325 mg PO DAILY Qty: 0 0RF
ibuprofen 600 mg Tablet
600 mg PO Q6HPRN PRN (Reason: cramps) Qty: 40 0RF
simethicone 80 mg Tablet,Chewable
80 mg PO TIDPRN PRN (Reason: flatulence) Qty: 0 0RF
acetaminophen 325 mg Tablet
650 mg PO Q4HPRN PRN (Reason: mild pain) Qty: 0 0RF
labetalol 200 mg Tablet
200 mg PO BID Qty: 90 0RF
Referrals:
Ryan Nicole MD [Family Provider] - Next open appointment
Paul Steve MD [Active] - Next open appointment
Interventions
Interventions:
*Risk Screen - Suicide Last Done: 02/06/24 23:16
*General Assessment Last Done: 02/06/24 23:16
*Neglect/Abuse Screening Last Done: 02/06/24 23:16
ED- Fall Risk Assessment Last Done: 02/06/24 23:56
*ED COVID-19 Vaccine History Last Done: 02/06/24 23:56
XR-Ppbaay-Lnxupzniik Assessment Last Done: 02/06/24 23:55
ED-Female Genitourinary Assessment Last Done: 02/06/24 23:55
Discharge Date and Time
Print Language: SINHALA
[2024-02-07 00:47] LABS: Urine Mucus Moderate; Urine Red Blood Cell 70-80 /HPF (0-2); Urine Squamous Cell >30 /LPF (Few); Urine White Cell 0-2 /HPF (0-5)
[2024-02-07 00:48] LABS: Urine Bacteria Moderate (Negative)
[2024-02-07 00:49] LABS: HCG, Urine Qualitative Screen Positive
[2024-02-07] MEDS: ZOFRAN 4 MG IV (00:54)
[2024-02-07] MEDS: NSS 1000 IV (00:54)
[2024-02-07] MEDS: TORADOL 30 MG IV (00:55)
[2024-02-07] MEDS: DILAUDID 1 MG IV (01:12)
[2024-02-07 01:38] LABS: Beta HCG Quantitative < 2.39 mIU/ml
[2024-02-07 01:42] VITALS: BP 142/101
[2024-02-07 02:06] VITALS: BP 146/90
== END 2024-02-07 02:24 | disposition home or self-care (01) ==
LOC: EMR 23:14
PROVIDERS: EMERGENCY PHYSICIAN Emergency Medicine; FAMILY PHYSICIAN Family Medicine
DX: R10.9 Unspecified abdominal pain (principal)
CPT/HCPCS: 99284; 96374; 96375; 96361; 74176; 81003; 81015; 81025; 84702; 87086